=== PATIENT | female | born 1985 | race Caucasian/White ===

== ENCOUNTER 2016-12-24 19:26 | Emergency (ER) | payer BC ==
[~2016-12-24] VITALS: Ht 165.1 cm; Wt 79.1 kg
[2016-12-24 19:31] VITALS: Ht 165.1 cm; Wt 79.1 kg
[2016-12-24] MEDS ORDERED: ONDANSETRON 4mg/2ml INJECTION IV ONE (19:45)
[2016-12-24] MEDS ORDERED: MORPHINE SULFATE 4 MG SYRINGE IV ONE (19:45)
[2016-12-24] MEDS ORDERED: NORMAL SALINE 1,000 ML IV ONE (19:45)
[2016-12-24] MEDS ORDERED: NO ROUTINE MEDS (19:49)
--- NOTE | 2016-12-24 19:49 | ERPDOC ---
Departure Disposition Decision Date: Dec 24, 2016 Disposition Decision Time: 21:30 Disposition: 01 DISCHARGED HOME, SELF-CARE Impression Impression Impression: Primary Impression: Left lower quadrant abdominal pain of unknown etiology Severity: Moderate Condition: Stable Seen By: Mid-level only Patient Instructions: Acute Abdominal Pain (ED) Problems/Meds/Labs Reviewed?: Yes Medications reviewed and manag: Yes Additional Instructions: Take the Percocet as needed for pain. Use the Zofran as needed for nausea. If any severe pain, vomiting, or fever then return to Er. Otherwise please follow up with a primary care provider for reevaluation if this is not going away. Follow up care ordered?: Yes Mental Status: Alert Scripts Ondansetron (Zofran Odt) 4 Mg Tab.rapdis 4 MG PO Q8HR, #7 TAB 0 Refills Orally disintegrating tablet Prov: KEITHCHRISTI Valverde APRN 12/24/16 Oxycodone HCl/Acetaminophen (Percocet 5-325 mg Tablet) 5-325 Tablet 1 TAB PO Q4H Y for PAIN, #10 TAB 0 Refills Take 1 tablet, by mouth, every 4 hours as needed for pain. Prov: CHRISTI PARKER APRN 12/24/16 HPI - Abdominal Pain General Chief Complaint: Abdominal Pain Stated Complaint: ABD PAIN Time Seen by Provider: 19:30 Source: patient History/Exam Limitations: no limitations HPI - Abdominal Pain Initial Comments Last night she noted that she was having some left sided back pain and abdominal pain. Was not terrible. This morning she noted it again and over the course of the day it has gotten much worse. She states that she has had nausea and vomiting and if she eats then she has a BM. Has been more loose than watery. Denies any urinary symptoms or fever/chills. She has never had pain like this in the past and states however that it feels worse than when she had her babies. Occurred At: home Onset: Gradual Duration: 12-24 hrs Quality: sharpness Location: left flank Radiation: no radiation Activities at Onset: none Associated Symptoms: back pain, nausea/vomiting, DENIES: chest pain, diaphoresis, fatigue, fever/chills, headache, heartburn, rash, shortness of breath, swelling/mass in abdomen, syncope, weakness Hx of Similar Symptoms: No Allergies: Coded Allergies: acetaminophen (Verified Allergy, Unknown, 12/24/16) hydrocodone (Verified Allergy, Unknown, 12/24/16) Past History Past Medical History Pt denies signifigant H Surgical History Denies Surgeries Family History Family History: Negative Social History Smoking Status: Never smoker Substance Use Type: does not use Alcohol Intake: none Review of Systems Constitutional Constitutional: DENIES: chills, dizziness, fatigue, fever, weakness Cardiovascular Cardiac: DENIES: chest pain, orthopnea Rhythm/Rate: DENIES: irregular beat, palpitations Pulmonary Respiratory: DENIES: cough, dyspnea, sputum, tachypnea GI Upper Abdomen: nausea, vomiting, DENIES: pain Lower Abdomen: diarrhea, pain, DENIES: constipation General: DENIES: discharge, dysuria, frequency, hematuria, urgency Integumentary Skin: DENIES: rash Neurological General: DENIES: headache, numbness, tingling, weakness Physical Exam General General Nourishment: well nourished, well developed, appears stated age, no acute distress, adult General Body Habitus: well groomed Vitals and Pain First Documented Vital Signs Date Time Temp Pulse Resp B/P Pulse Ox O2 Delivery O2 Flow Rate FiO2 12/24/16 19:31 98.1 62 18 156/91 98 Room Air Weight: Kilograms: Height (feet): Height (inches): Triage Pain Scale: RN VS reviewed by Provider: Yes Normal Exams: Neck: Full range of motion, without adenopathy, JVD, bruits or thyromegaly Chest/Resp: Clear all hooker, with good airflow, and symmetry bilaterally CV: Regular rate and rhythm, without murmur or gallop, Pulses 2+ all extremities, capillary refill, <2 seconds all ext., no pedal edema noted Abdomen: Bowel sounds positive, non-distended, no hepatosplenomegaly, masses or bruits noted Lymphatic: No lymphadenopathy, or lymphedema noted Integumentary: No rashes, hives, or bruising noted Neurologic: Patient is alert, and oriented Psychiatric: Patient exhibits, appropriate attention, emotion and affect Abdomen Inspection: NOT FOUND: distention Palpation: FOUND: soft, tender (moderat TTP in the LLQ and suprapubic region. ) , voluntary guarding, NOT FOUND: involuntary guarding, rebound Auscultation: FOUND: normoactive Differential Diagnoses Considering: Pyelonephritis, Renal Colic, UTI, Other (lumbar strain, diverticulitis) Progress Results/Orders Orders Procedure Category Date Status Time LAB 12/24/16 Complete Qualitative, Urine 19:42 Cbc W/Auto LAB 12/24/16 Complete Diff-Reflex Manual Bmp - Basic Metabolic LAB 12/24/16 Complete Panel Iv Lock (Ed Only) EDM 12/24/16 Transmitted 19:42 Ua, Dip Wreflex LAB 12/24/16 Complete Microsc & Management Services Technician 19:42 Normal Saline (Normal PHA 12/24/16 Complete Saline Iv) 19:45 Ondansetron Inj PHA 12/24/16 Complete (Zofran) 19:45 Morphine Sulfate PHA 12/24/16 Complete (Morphine) 19:45 Ct Renal W/O Contrast CT 12/24/16 Logged Ketorolac (Toradol) PHA 12/24/16 Complete 20:45 Oxycodone/Apap 5/325 PHA 12/24/16 In Process (Prepack) (Percocet 21:45 Ondansetron Odt PHA 12/24/16 In Process (Prepack) (Zofran Odt 21:45 Lab Results Laboratory Tests Test 12/24/16 19:51 12/24/16 20:12 White Blood Count 11.8T/MM3 Red Blood Count 4.79M/MM3 Hemoglobin 14.2GM/DL Hematocrit 42.3% Mean Corpuscular Volume 88.3UM3 Mean Corpuscular Hemoglobin 29.6UUG Mean Corpuscular Hemoglobin Concent 33.6GM/DL RDW Standard Deviation 46.1FL Platelet Count 237T/MM3 Mean Platelet Volume 9.1UM3 Immature Granulocyte % (Auto) 0.2% Neutrophils (%) (Auto) 65.4% Lymphocytes (%) (Auto) 26.9% Monocytes (%) (Auto) 5.5% Eosinophils (%) (Auto) 1.7% Basophils (%) (Auto) 0.3% Absolute Immature Granulocyte (auto 0.02T/MM3 Absolute Neutrophils (auto) 7.7T/MM3 Absolute Lymphocytes (auto) 3.2T/MM3 Absolute Monocytes (auto) 0.7T/MM3 Absolute Eosinophils (auto) 0.2T/MM3 Absolute Basophils (auto) 0.0T/MM3 Turbidity < 20 Sodium Level 141MEQ/L Potassium Level 3.6MEQ/L Chloride Level 103MEQ/L Carbon Dioxide Level 25MEQ/L Anion Gap 13MEQ/L Blood Urea Nitrogen 6.0MG/DL Creatinine 0.6MG/DL Glomerular Filtration Rate Calc 117 BUN/Creatinine Ratio 10RATIO Glucose Level 104MG/DL Calculated Osmolality 269MOSM/KG Calcium Level 9.1MG/DL Icterus Index < 2 Chemistry Specimen Hemolysis < 15 Urine Collection Type Cleancatch-midstream Urine Color Yellow Urine Turbidity Clear Urine pH 6.0 Urine Specific [place] 1.015 Urine Protein Negative Urine Glucose (UA) Negative Urine Ketones Negative Urine Blood Negative Urine Nitrite Negative Urine Bilirubin Negative Urine Urobilinogen 0.2EU/DL Urine Leukocyte Esterase Negative Urinalysis Comment Microscopic not ind. Urine Test Negative Medications Current ED Medications Sodium Chloride (Normal Saline IV) 1,000 ml @ 1,000 mls/hr Q1H ONCE IV Last administered on 12/24/16 19:55; Start 12/24/16 at 19:45; Stop 12/24/16 at 20:44 ; Status DC Ondansetron HCl (Zofran) 4 mg O ONCE IV Last administered on 12/24/16 19:55; Start 12/24/16 at 19:45; Stop 12/24/16 at 19:46; Status DC Morphine Sulfate (Morphine) 4 mg O ONCE IV Last administered on 12/24/16 19: 55; Start 12/24/16 at 19:45; Stop 12/24/16 at 19:46; Status DC Ketorolac Tromethamine (Toradol) 30 mg O ONCE IV Last administered on 20:55; Start 12/24/16 at 20:45; Stop 12/24/16 at 20:46; Status DC Oxycodone/ Acetaminophen (Percocet 5 (Prepack)) 1 pack O ONCE SENT HOME ; Start 12/24/16 at 21:45; Stop 12/24/16 at 21:46 Ondansetron HCl (ZOFRAN ODT (PrePack)) 1 pack O ONCE SENT HOME ; Start at 21:45; Stop 12/24/16 at 21:46 Progress Progress WBC is 11.8 without a left shift. BMP is normal. UA is clear and HCG is negative. Ct scan is negative today as well. Pain is improved after Toradol and Morphine. Will go ahead and let her go home today. Will send her with Percocet and Zofran but did encourage her to follow up with a PCP. She has not established with anyone in [place] yet so hand out given with list of PCP. CT CT : Reason for Exam: left lower abdominal pain CT: Abd/Pelvis no contrast Interpretation: Normal CHRISTI PARKER APRN Dec 24, 2016 19:48
[2016-12-24 19:56] LABS: BASOPHILS % (AUTO) 0.3 % (0-2); EOSINOPHILS # (AUTO) 0.2 T/MM3 (0-0.5); EOSINOPHILS % (AUTO) 1.7 % (0-4); HCT - HEMATOCRIT 42.3 % (36-46); HGB - HEMOGLOBIN 14.2 GM/DL (12-16); IMMATURE GRANULOCYTE # (AUTO) 0.02 T/MM3 (0.00-0.03); IMMATURE GRANULOCYTE % (AUTO) 0.2 % (0.0-0.5); LYMPHOCYTES # (AUTO) 3.2 T/MM3 (1-4.8); LYMPHOCYTES % (AUTO) 26.9 % (23-45); MEAN CORPUSCULAR HGB 29.6 UUG (26-34); MEAN CORPUSCULAR HGB CONC(MCHC 33.6 GM/DL (31-37); MEAN CORPUSCULAR VOLUME 88.3 UM3 (80-100); MEAN PLATELET VOLUME 9.1 UM3 (9.4-12.4); MONOCYTES # (AUTO) 0.7 T/MM3 (0-0.8); MONOCYTES % (AUTO) 5.5 % (0-9.0); NEUTROPHILS #(AUTO)-ABSOLUTE 7.7 T/MM3 (1.8-7.7); NEUTROPHILS % (AUTO) 65.4 % (33-66); RED BLOOD COUNT 4.79 M/MM3 (4.00-5.20); WBC - WHITE BLOOD COUNT 11.8 T/MM3 (4.5-11.0)
[2016-12-24 20:04] LABS: ANION GAP 13 MEQ/L (5-15); BUN/CREATININE RATIO 10 RATIO (6-26); CALCIUM 9.1 MG/DL (8.4-10.2); CHLORIDE 103 MEQ/L (98-107); CO2 - CARBON DIOXIDE 25 MEQ/L (22-30); CREATININE 0.6 MG/DL (0.7-1.2); GLOMERULAR FILTRATION RATE 117; GLUCOSE 104 MG/DL (65-110); POTASSIUM 3.6 MEQ/L (3.6-5); SODIUM 141 MEQ/L (134-144)
--- NOTE | 2016-12-24 20:08 | NUR ---
ELIMINATION PATIENT UP TO BR TO ATTEMPT TO VOID. UA TO BE COLLECTED.
[2016-12-24 20:17] LABS: BLOOD, URINE NEGATIVE (NEGATIVE); COLOR,URINE YELLOW (YELLOW); LEUKOCYTE ESTERASE ,URINE NEGATIVE (NEGATIVE); NITRITE,URINE NEGATIVE (NEGATIVE); UROBILINOGEN,URINE 0.2 EU/DL (NORMAL)
[2016-12-24] MEDS ORDERED: KETOROLAC 30mg/ml INJECTION IV ONE (20:45)
--- NOTE | 2016-12-24 20:45 | NUR ---
TO CT PER CART.
--- NOTE | 2016-12-24 20:54 | NUR ---
BACK FROM CT.
--- NOTE | 2016-12-24 21:24 | NUR ---
PROVIDER Shani PARKER ROCKET MOTOR TESTER IN TO SEE PATIENT.
[2016-12-24] MEDS ORDERED: OXYC1TAB8 PO (21:32)
[2016-12-24] MEDS ORDERED: ONDA4TAB7 PO (21:32)
[2016-12-24 21:41] VITALS: BP 117/74; PULSE 64; RESP 15; TEMP 98.1; O2SAT 97
[2016-12-24] MEDS ORDERED: ONDANSETRON ODT 4mg #3 (PrePack) SENT HOME ONE (21:45)
[2016-12-24] MEDS ORDERED: OXYCODONE/APAP 5/325 (Prepack) SENT HOME ONE (21:45)
--- NOTE | 2016-12-25 08:06 | DI ---
Indication: ITS.REASON: left flank pain PROCEDURE: CT RENAL W/O CONTRAST: Encounter: Initial Comparison: None Technique: Axial CT images were performed through the abdomen and pelvis without intravenous contrast. Coronal and sagittal two-dimensional reformats. Automated Exposure Control and Iterative Reconstruction dose reducing techniques were utilized. Findings: Small hiatal hernia. The lung bases are clear. The liver is unremarkable. Gallbladder, spleen, pancreas, adrenal glands and kidneys are normal. No renal or ureteral stones. Left pelvic phleboliths. Uterus is unremarkable. Tubal ligation clips, the left clip may be displaced from its intended location. Bladder is normal. No evidence of a bowel obstruction. The appendix is normal. Bone windows are unremarkable. Impression: No acute disease process seen in the abdomen or pelvis. There is a preliminary report by [facility]. .
== END 2016-12-24 21:41 | disposition home or self-care (01) ==
LOC: ED 19:26
DX: R10.32 Left lower quadrant pain (principal); M54.89 Other dorsalgia; R11.2 Nausea with vomiting, unspecified; R19.7 Diarrhea, unspecified
CPT/HCPCS: 74176; 80048; 81003; 81025; 85025; 96361; 96374; 96375; 99284; J1885; J2405; J7030